=== PATIENT | male | born 1995 | race African-American/Black ===

== ENCOUNTER 2022-04-15 00:19 | Emergency (ER) | payer SELFPAY ==
--- OUTSIDE RECORDS SUMMARY | 2022-04-15 00:22 | XMS REPORT | Continuity of Care Document ---
:1995 Author Organization [facility] t Address [address] [place] [address] Dr. Clark [address] [place] [id number] Care Team Providers Name Role Phone Unavailable Unavailable Unavailable Problems This patient has no known problems. Allergies, Adverse Reactions, Alerts This patient has no known allergies or adverse reactions. Medications This patient has no known medications. Procedures This patient has no known procedures. Results This patient has no known results.
--- NOTE | 2022-04-15 03:37 | ER ---
Nurse's Notes [facility] Name: Favian Barker Jr Age: 26 yrs Sex: Male : 1995 Arrival Date: 04/15/2022 Time: 00:20 Bed 10 Private MD: Diagnosis: Foot Pain, Left Presentation: 04/15 00:28 Chief complaint: Patient states: I have pain in my left foot towards the arch of the jb4 foot. I have seen multiple doctors over the years. Nothing has helped. Tonight is the worst it has been thus far. Coronavirus screen: At this time, the client does not indicate any symptoms associated with coronavirus-19. Ebola Screen: No symptoms or risks identified at this time. Initial Sepsis Screen: Does the patient meet any 2 criteria? No. Patient's initial sepsis screen is negative. Does the patient have a suspected source of infection? No. Patient's initial sepsis screen is negative. Risk Assessment: Do you want to hurt yourself or someone else? Patient reports no desire to harm self or others. Onset of symptoms was April 15, 2022. Transition of care: patient was not received from another setting of care. 00:28 Method Of Arrival: Ambulatory jb4 00:28 Acuity: NISHI 4 jb4 Triage Assessment: 00:31 General: Appears in no apparent distress. comfortable, Behavior is calm, cooperative, jb4 appropriate for age. Pain: Complains of pain in arch of left foot and dorsum of left foot Pain does not radiate. Pain currently is 10 out of 10 on a pain scale. Neuro: Level of Consciousness is awake, alert, obeys commands, Oriented to person, place, time, situation. Cardiovascular: Patient's skin is warm and dry. Respiratory: Airway is patent Respiratory effort is even, unlabored, Respiratory pattern is regular, symmetrical. Derm: Skin is intact, Skin is dry, Skin is normal, Skin temperature is warm. Musculoskeletal: Circulation, motion, and sensation intact. Range of motion: intact in all extremities. Historical: - Allergies: 00:31 No Known Allergies; jb4 - Home Meds: 00:31 None [Active]; jb4 - PMHx: 00:31 None; jb4 - PSHx: 00:31 None; jb4 - Immunization history:: Adult Immunizations up to date, Client reports having NOT received the Covid vaccine. - Social history:: Smoking status: Patient denies any tobacco usage or history of. Screenin:31 Abuse screen: Denies threats or abuse. Nutritional screening: No deficits noted. jb4 Tuberculosis screening: No symptoms or risk factors identified. Fall Risk None identified. Assessment: 02:41 Reassessment: Patient appears in no apparent distress at this time. Patient and/or jb4 family updated on plan of care and expected duration. Pain level reassessed. Patient is alert, oriented x 3, equal unlabored respirations, skin warm/dry/pink. 03:45 Reassessment: Patient appears in no apparent distress at this time. Patient and/or jb4 family updated on plan of care and expected duration. Pain level reassessed. Patient is alert, oriented x 3, equal unlabored respirations, skin warm/dry/pink. Vital Signs: 00:28 BP 127 / 82; Pulse 75; Resp 16; Temp 98.6(O); Pulse Ox 98% on R/A; Weight 107.05 kg jb4 (R); Height 5 ft. 7 in. (170.18 cm); Pain 10/10; 03:45 BP 113 / 69; Pulse 66; Resp 16; Pulse Ox 100% on R/A; jb4 00:28 Body Mass Index 36.96 (107.05 kg, 170.18 cm) jb4 ED Course: 00:20 Patient arrived in ED. bp1 00:31 Triage completed. jb4 00:31 Arm band placed on right wrist. jb4 00:50 Vincent Farooq, EFRAIN is Primary Nurse. jb4 01:03 Foot Left 3 View XRAY In Process Unspecified. EDMS 01:13 Aidan Jean MD is Attending Physician. 7 02:42 Patient has correct armband on for positive identification. Bed in low position. Call jb4 light in reach. Side rails up X 1. 02:42 No provider procedures requiring assistance completed. Patient did not have IV access jb4 during this emergency room visit. 03:35 Claude Dutton DPM is Referral Physician. mh7 Administered Medications: 03:40 Drug: Ibuprofen 800 mg Route: PO; jb4 03:40 Follow up: Response: Medication administered at discharge. jb4 Medication: 03:45 VIS not applicable for this client. jb4 Outcome: 03:36 Discharge ordered by . mh7 03:45 Discharged to home ambulatory, with family. jb4 03:45 Condition: stable 03:45 Discharge instructions given to patient, Instructed on discharge instructions, follow up and referral plans. Demonstrated understanding of instructions, follow-up care. 03:46 Patient left the ED. jb4 Signatures: Dispatcher [employer] EDVincent Beard RN RN jb4 Melisa Tristan Maurice, MD MD mh7
--- NOTE | 2022-04-15 03:37 | EDPHYS ---
Physician Documentation [facility] Name: Favian Barker Jr Age: 26 yrs Sex: Male : 1995 Arrival Date: 04/15/2022 Time: 00:20 Bed 10 Private MD: ED Physician Aidan Jean HPI: 04/15 03:31 This 26 yrs old Black Male presents to ER via Ambulatory with complaints of Foot Pain. mh7 03:31 The patient presents with pain, that is chronic. The complaints affect the left foot. mh7 Context: The problem was sustained at an unknown location, resulted from an unknown cause, Mechanism of Injury: Unknown the patient can fully bear weight, the patient is able to ambulate, with mild difficulty. Onset: The symptoms/episode began/occurred last night. Modifying factors: The symptoms are alleviated by nothing, the symptoms are aggravated by weight bearing. Associated signs and symptoms: Pertinent negatives: calf tenderness, fever, nausea, numbness, rash, swelling, tingling, vomiting, warmth, weakness. Severity of symptoms: At their worst the symptoms were moderate, last night, in the emergency department the symptoms have improved, moderately. The patient has experienced similar episodes in the past, chronically. Historical: - Allergies: 00:31 No Known Allergies; jb4 - Home Meds: 00:31 None [Active]; jb4 - PMHx: 00:31 None; jb4 - PSHx: 00:31 None; jb4 - Immunization history:: Adult Immunizations up to date, Client reports having NOT received the Covid vaccine. - Social history:: Smoking status: Patient denies any tobacco usage or history of. ROS: 03:31 Constitutional: Negative for fever, chills, and weight loss, Eyes: Negative for injury, mh7 pain, redness, and discharge, ENT: Negative for injury, pain, and discharge, Neck: Negative for injury, pain, and swelling, Cardiovascular: Negative for chest pain, palpitations, and edema, Respiratory: Negative for shortness of breath, cough, wheezing, and pleuritic chest pain, Abdomen/GI: Negative for abdominal pain, nausea, vomiting, diarrhea, and constipation, Back: Negative for injury and pain, : Negative for injury, bleeding, discharge, and swelling, Skin: Negative for injury, rash, and discoloration, Neuro: Negative for headache, weakness, numbness, tingling, and seizure, Psych: Negative for depression, anxiety, suicide ideation, homicidal ideation, and hallucinations, Allergy/Immunology: Negative for hives, rash, and allergies, Endocrine: Negative for neck swelling, polydipsia, polyuria, polyphagia, and marked weight changes, Hematologic/Lymphatic: Negative for swollen nodes, abnormal bleeding, and unusual bruising. Exam: 03:31 Constitutional: This is a well developed, well nourished patient who is awake, alert, mh7 and in no acute distress. Head/Face: Normocephalic, atraumatic. Skin: Warm, dry with normal turgor. Normal color with no rashes, no lesions, and no evidence of cellulitis. Neuro: Awake and alert, GCS 15, oriented to person, place, time, and situation. Cranial nerves II-XII grossly intact. Motor strength 5/5 in all extremities. Sensory grossly intact. Cerebellar exam normal. Normal gait. Psych: Awake, alert, with orientation to person, place and time. Behavior, mood, and affect are within normal limits. 03:31 Musculoskeletal/extremity: Extremities: noted in the left foot and arch of left foot: pain, tenderness, ROM: intact in all extremities, Circulation is intact in all extremities. Sensation intact. Compartment Syndrome exam of affected extremity: is normal. no numbness, no tingling, no sensation deficit, no palor, no weak pulses, Joints: All joints appear normal with full range of motion. Weight bearing: able to fully bear weight, Tendon exam: specific tendon testing normal through active and passive range of motion Vital Signs: 00:28 BP 127 / 82; Pulse 75; Resp 16; Temp 98.6(O); Pulse Ox 98% on R/A; Weight 107.05 kg jb4 (R); Height 5 ft. 7 in. (170.18 cm); Pain 10/10; 03:45 BP 113 / 69; Pulse 66; Resp 16; Pulse Ox 100% on R/A; jb4 00:28 Body Mass Index 36.96 (107.05 kg, 170.18 cm) jb4 MDM: 03:34 Differential diagnosis: fracture, sprain, arthritis. Data reviewed: vital signs, nurses [facility] notes, radiologic studies, plain films. Counseling: I had a detailed discussion with the patient and/or guardian regarding: the historical points, exam findings, and any diagnostic results supporting the discharge/admit diagnosis, radiology results, the need for outpatient follow up, a fence setter, to return to the emergency department if symptoms worsen or persist or if there are any questions or concerns that arise at home. Response to treatment: the patient's symptoms have markedly improved after treatment. 03:36 Patient medically screened. [facility] 04/15 00:37 Order name: Foot Left 3 View XRAY [facility] Administered Medications: 03:40 Drug: Ibuprofen 800 mg Route: PO; jb4 03:40 Follow up: Response: Medication administered at discharge. jb4 Disposition Summary: 04/15/22 03:36 Discharge Ordered Location: Home [facility] Problem: an ongoing problem [facility] Symptoms: have improved [facility] Condition: Stable [facility] Diagnosis - Foot Pain, Left 7 Followup: [facility] - With: Private Physician - When: 1 - 2 days - Reason: Worsening of condition, Recheck today's complaints, Continuance of care, Re-evaluation by your physician Followup: [facility] - With: Claude Dutton DPM - When: 1 - 2 days - Reason: Worsening of condition, Recheck today's complaints Forms: - Medication Reconciliation Form [facility] - Thank You Letter [facility] - Antibiotic Education [facility] - Prescription Opioid Use [facility] Signatures: Dispatcher [employer] Vincent Frias, RN RN jb4 Aidan Jean MD MD 7
[2022-04-15] MEDS ORDERED: IBUPROFEN 400 MG TAB ONE (03:42)
[2022-04-15 03:52] VITALS: TEMP 98.6
[2022-04-15 03:54] VITALS: BP 113/69; O2SAT 100
--- NOTE | 2022-04-15 15:58 | RAD REPORT ---
EXAM DESCRIPTION: RAD - Foot Left 3 View - 04/15/2022 1:01 am CLINICAL HISTORY: 26 years, Male, PAIN COMPARISON: None FINDINGS: 3 X-ray views of the left foot (Frontal, lateral and oblique views) were performed. No acute bony injuries were demonstrated. No gross articular or soft tissue abnormality is identifi ed. There are no gross intraosseous lesions. No periosteal reaction were seen. No definitive disp laced fracture are identified, if symptoms persist, clinical correlation and/or further evaluation wi CT scan and/or MRI could be of assistance. IMPRESSION: No acute bony injuries were demonstrated. Electronically signed by: Franklin Duran MD 04/15/2022 1:12 AM CDT Due to temporary technical issues with the PACS/Fluency reporting system, reports are being signed by the in house radiologist without review as a courtesy to ensure prompt reporting. The interpreting r adiologist is fully responsible for the content of the report.
== END 2022-04-15 03:46 | disposition home or self-care (01) ==
LOC: ER 00:19
DX: M79.672 Pain in left foot (principal)
CPT/HCPCS: 99283

== ENCOUNTER 2022-07-15 06:01 | Emergency (ER) | payer SELFPAY ==
--- OUTSIDE RECORDS SUMMARY | 2022-07-15 06:05 | XMS REPORT | Continuity of Care Document ---
:1995 Author Organization [facility] t Address [address] [place] [address] Dr. Clark [address] [place] [id number] Care Team Providers Name Role Phone Unavailable Unavailable Unavailable Problems This patient has no known problems. Allergies, Adverse Reactions, Alerts This patient has no known allergies or adverse reactions. Medications This patient has no known medications. Procedures This patient has no known procedures. Results This patient has no known results.
--- NOTE | 2022-07-15 06:20 | ER ---
Nurse's Notes [facility] Name: Favian Barker Jr Age: 27 yrs Sex: Male : 1995 Arrival Date: 07/15/2022 Time: 06:06 Bed 16 Private MD: Diagnosis: Pain in right foot;Pain in left foot Presentation: 07/15 06:15 Chief complaint: Patient states: I have a history of foot pain and I feel that is not ha1 getting better. Coronavirus screen: Vaccine status: Patient reports being unvaccinated. Ebola Screen: No symptoms or risks identified at this time. Initial Sepsis Screen: Does the patient meet any 2 criteria? No. Patient's initial sepsis screen is negative. Does the patient have a suspected source of infection? No. Patient's initial sepsis screen is negative. Risk Assessment: Do you want to hurt yourself or someone else? Patient reports no desire to harm self or others. Onset of symptoms was July 15, 2022. 06:15 Method Of Arrival: Ambulatory ha1 06:15 Acuity: NISHI 3 ha1 Triage Assessment: 06:19 General: Appears in no apparent distress. Behavior is calm, cooperative. Pain: ha1 Complains of pain in bilateral foot pain. Historical: - Allergies: 06:19 No Known Allergies; ha1 - Immunization history:: Adult Immunizations unknown. - Social history:: Smoking status: Patient denies any tobacco usage or history of. Screenin:22 Abuse screen: Denies threats or abuse. Nutritional screening: No deficits noted. ke1 Tuberculosis screening: No symptoms or risk factors identified. Fall Risk No fall in past 12 months (0 pts). No secondary diagnosis (0 pts). No IV (0 pts). Ambulatory Aid- None/Bed Rest/Nurse Assist (0 pts). Gait- Normal/Bed Rest/Wheelchair (0 pts) Mental Status- Oriented to own ability (0 pts). Total Colon Fall Scale indicates No Risk (0-24 pts). Assessment: 06:20 Pain: Complains of pain in bilateral feet Pain currently is 6 out of 10 on a pain ke1 scale. at worst was 10 out of 10 on a pain scale. Quality of pain is described as throbbing. Vital Signs: 06:15 BP 122 / 81; Pulse 81; Resp 15 S; Temp 98.2; Pulse Ox 100% on R/A; Weight 104.33 kg; ha1 Height 5 ft. 7 in. (170.18 cm); 06:15 Body Mass Index 36.02 (104.33 kg, 170.18 cm) ha1 ED Course: 06:06 Patient arrived in ED. ja2 06:07 Humble Galarza DO is Attending Physician. ms3 06:11 Karmen Malin, RN is Primary Nurse. ke1 06:19 Triage completed. ha1 06:19 Arthur Almeida DPM is Referral Physician. ms3 06:19 Arm band placed on right wrist. ha1 06:19 Bed in low position. Call light in reach. ke1 06:31 No provider procedures requiring assistance completed. Patient did not have IV access ke1 during this emergency room visit. Administered Medications: 06:29 Drug: Ibuprofen 600 mg Route: PO; ke1 06:32 Follow up: Response: Medication administered at discharge. ke1 Medication: 06:32 VIS not applicable for this client. ke1 Outcome: 06:20 Discharge ordered by . ms3 06:31 Discharged to home ambulatory. ke1 06:31 Condition: good 06:31 Discharge instructions given to patient. 06:32 Patient left the ED. ke1 Signatures: Humble Galarza DO DO ms3 Yazmin Majano ja2 Karmen Malin, EFRAIN RN ke1 Annemarie Chi RN RN 1
--- NOTE | 2022-07-15 06:20 | EDPHYS ---
Physician Documentation [facility] Name: Favian Barker Jr Age: 27 yrs Sex: Male : 1995 Arrival Date: 07/15/2022 Time: 06:06 Bed 16 Private MD: ED Physician Humble Galarza HPI: 07/15 06:21 This 27 yrs old Black Male presents to ER via Ambulatory with complaints of Foot Pain. ms3 06:21 27-year-old male with no past medical history presents for bilateral foot pain that has ms3 been intermittent for 2 months. Patient states he was seen in the emergency department 2 months ago and given pain medications at that time. 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 Patient states tonight his feet began throbbing. He rates the pain a 5/10. Patient denies alleviating or inciting factors.. Historical: - Allergies: 06:19 No Known Allergies; ha1 - Immunization history:: Adult Immunizations unknown. - Social history:: Smoking status: Patient denies any tobacco usage or history of. ROS: 06:21 MS/extremity: Positive for feet pain. ms3 06:21 Constitutional: Negative for fever, and chills. Neck: Negative for injury, pain, and swelling, Cardiovascular: Negative for chest pain, and palpitations. Respiratory: Negative for shortness of breath, cough, wheezing, and pleuritic chest pain, Abdomen/GI: Negative for abdominal pain, nausea, vomiting, diarrhea, and constipation, Skin: Negative for injury, rash, and discoloration, Neuro: Negative for headache, weakness, numbness, tingling. Exam: 06:21 Constitutional: This is a well developed, well nourished patient who is awake, alert, ms3 and in no acute distress. Head/Face: Normocephalic, atraumatic. Neck: Trachea midline, no cervical lymphadenopathy. Supple, full range of motion without nuchal rigidity, or vertebral point tenderness. No Meningismus. Chest/axilla: Normal chest wall appearance and motion. Nontender with no deformity. Cardiovascular: Regular rate and rhythm with a normal S1 and S2. No gallops, murmurs, or rubs. Normal PMI, no JVD. No pulse deficits. Respiratory: Lungs have equal breath sounds bilaterally, clear to auscultation and percussion. No rales, rhonchi or wheezes noted. No increased work of breathing, no retractions or nasal flaring. Abdomen/GI: Soft, non-tender, with normal bowel sounds. No distension or tympany. No guarding or rebound. No evidence of tenderness throughout. Skin: Warm, dry with normal turgor. Normal color with no rashes, no lesions, and no evidence of cellulitis. MS/ Extremity: Pulses equal, no cyanosis. Neurovascular intact. Full, normal range of motion. Psych: Awake, alert, with orientation to person, place and time. Behavior, mood, and affect are within normal limits. Vital Signs: 06:15 BP 122 / 81; Pulse 81; Resp 15 S; Temp 98.2; Pulse Ox 100% on R/A; Weight 104.33 kg; ha1 Height 5 ft. 7 in. (170.18 cm); 06:15 Body Mass Index 36.02 (104.33 kg, 170.18 cm) ha1 MDM: 06:18 Patient medically screened. ms3 06:21 Data reviewed: vital signs, nurses notes, and as a result, I will discharge patient. ms3 Counseling: I had a detailed discussion with the patient and/or guardian regarding: the historical points, exam findings, and any diagnostic results supporting the discharge/admit diagnosis, the need for outpatient follow up, to return to the emergency department if symptoms worsen or persist or if there are any questions or concerns that arise at home. Special discussion: I discussed with the patient/guardian in detail that at this point there is no indication for admission to the hospital. It is understood, however, that if the symptoms persist or worsen the patient needs to return immediately for re-evaluation. Administered Medications: 06:29 Drug: Ibuprofen 600 mg Route: PO; ke1 06:32 Follow up: Response: Medication administered at discharge. ke1 Disposition Summary: 07/15/22 06:20 Discharge Ordered Location: Home ms3 Condition: Stable ms3 Diagnosis - Pain in right foot ms3 - Pain in left foot ms3 Followup: ms3 - With: Arthur Almeida DPM - When: 2 - 3 days - Reason: Recheck today's complaints Discharge Instructions: - Discharge Summary Sheet ms3 - Musculoskeletal Pain ms3 Forms: - Medication Reconciliation Form ms3 - Thank You Letter ms3 - Antibiotic Education ms3 - Prescription Opioid Use ms3 Prescriptions: - Ibuprofen 600 mg Oral Tablet - take 1 tablet by ORAL route every 6 hours As needed take with food; 30 tablet; ms3 Refills: 0, Product Selection Permitted Signatures: Humble Galarza DO DO ms3 Karmen Malin RN RN ke1 Annemarie Chi RN RN ha1
[2022-07-15] MEDS ORDERED: IBUPROFEN 200 MG TAB PO ONE (06:35)
[2022-07-15] MEDS ORDERED: IBUPROFEN 400 MG TAB ONE (06:36)
[2022-07-15 07:36] VITALS: BP 122/81; TEMP 98.2; O2SAT 100
== END 2022-07-15 06:32 | disposition home or self-care (01) ==
LOC: ER 06:01
DX: M79.671 Pain in right foot (principal); M79.672 Pain in left foot
CPT/HCPCS: 99283